=== PATIENT | female | born 1990 | race Two or more races ===

== ENCOUNTER 2024-08-09 09:32 | Emergency (ER) | payer MEDICAID, OTHER ==
[~2024-08-09] VITALS: Ht 160 cm; Wt 91.3 kg
--- NOTE | 2024-08-09 10:06 | ED.PDOC ---
Musculoskeletal HPI Comments 34-year-old female here with bilateral leg swelling. She states this has been in the last 2-3 weeks. Denies any chest pain shortness of breath. She states this has been ongoing for years. She states they have checked her heart and other organ systems but she is not exactly sure. Denies any recent cough cold runny nose. She was offered a water pill at some point but she did not know what for was for so she refused. Chief Complaint: Lower Extremity Time Seen by MD: 10:03 Reviewed Notes: Nurses Notes, Medications, Allergies Allergies: Coded Allergies: NO KNOWN ALLERGIES (Unverified , 08/09/24) Information Source: Patient Mode of Arrival: Ambulatory Location: Bilateral Extremity Location: Leg Timing: Weeks Prehospital treatment: None Severity: Moderate Able to Move Extremity: Yes Bear Weight: Fully Pain: Moderate Mechanism: Spontaneous Circumstances: Spontaneous Onset of Symptoms: Spontaneous Symptoms: Swelling, Pain DVT Risk Factors: NONE Last Tetanus: Unknown Associated signs and symptoms: Swelling Past Medical History PAST MEDICAL HISTORY: Denies Surgical History: Denies all surgeries PHOTOGRAPHY AND PRINTS CURATOR History: Denies all PHOTOGRAPHY AND PRINTS CURATOR Hx Family History Family History: Unknown Social History Smoker: Non-Smoker Alcohol: Denies ETOH Use Drugs: Denies Drug Use Lives In: Home Musculoskeletal: reports: others (BILATERAL LEG SWELLING) All Other Systems: Reviewed and Negative ( PER HPI) Physical Exam General Appearance: No Apparent Distress, Normal HEENT: Normal ENT Inspection, Pharynx Normal, TMs Normal Neck: Full Range of Motion, Non-Tender, Normal, Normal Inspection Respiratory: Chest Non-Tender, Lungs Clear, No Accessory Muscle Use, No Respiratory Distress, Normal Breath Sounds Cardiovascular: No Edema, No JVD, No Murmur, No Gallop, Normal Peripheral Pulses, Regular Rate/Rhythm Breast Exam: Deferred Gastrointestinal: No Organomegaly, Non Tender, No Pulsatile Mass, Normal Bowel Sounds, Soft Genitalia: Deferred Pelvic: Deferred Rectal: Deferred Extremities: Leg edema (3+ BILATERAL), No calf tenderness, Normal capillary refill, Normal inspection, Normal range of motion, Non-tender, Other (Bilateral leg edema right more than left. Plus two pitting edema to left lower extremity) Musculoskeletal : Apperance: Normal Neurologic: Alert, automatic log cut off sawyer II-XII nml as Tested, No Motor Deficits, Normal Affect, Normal Mood, No Sensory Deficits Cerebellar Function: Normal Reflexes: Normal Skin: Dry, Normal Color, Warm Lymphatic: No Adenopathy Was a procedure done? Was a procedure done?: No Differential Diagnosis EXT Differential Diagnosis: Cellulitis, CHF, Gout, Other (DVT) X-Ray, Labs, Meds, VS Vital Signs Date Time Temp Pulse Resp B/P (MAP) Pulse Ox O2 Delivery O2 Flow Rate FiO2 08/09/24 12:43 97.7 79 20 127/84 (98) 98 97.7 08/09/24 10:32 98.1 80 15 125/78 (94) 99 98.1 08/09/24 10:29 Room Air* 0 21 08/09/24 10:28 125/78 08/09/24 09:57 98.4 82 20 127/68 (87) 98 98.4 Lab Test 08/09/24 10:14 Range/Units White Blood Count 7.1 4.4-10.8 10^3/uL Red Blood Count 4.62 4.0-5.20 10^6/uL Hemoglobin 12.5 12.2-16.2 g/dL Hematocrit 36.2 36.0-46.0 % Mean Corpuscular Volume 78.2 L 80.0-100.0 fL Mean Corpuscular Hemoglobin 27.0 L 28.0-32.0 pg Mean Corpuscular Hemoglobin Concent 34.6 32.0-36.0 g/dL Red Cell Distribution Width 16.4 H 11.8-14.3 % Platelet Count 384 140-450 10^3/uL Mean Platelet Volume 8.5 6.9-10.8 fL Neutrophils (%) (Auto) 60.8 37.0-80.0 % Lymphocytes (%) (Auto) 24.9 10.0-50.0 % Monocytes (%) (Auto) 10.1 0.0-12.0 % Eosinophils (%) (Auto) 3.1 0.0-7.0 % Basophils (%) (Auto) 1.1 0.0-2.0 % Neutrophils # (Auto) 4.3 1.6-8.6 10 ^3/uL Lymphocytes # (Auto) 1.8 0.4-5.4 10 ^3/uL Monocytes # (Auto) 0.7 0-1.3 10 ^3/uL Eosinophils # (Auto) 0.2 0-0.8 10 ^3/uL Basophils # (Auto) 0.1 0-0.2 10 ^3/uL Nucleated Red Blood Cells 0.0 % Sodium Level 142 136-145 mmol/L Potassium Level 3.6 3.5-5.1 mmol/L Chloride Level 107 98-107 mmol/L Carbon Dioxide Level 29 20-31 mmol/L Anion Gap 6 5-15 Blood Urea Nitrogen 6 L 9-23 mg/dL Creatinine 0.62 0.550-1.02 mg/dL Glomerular Filtration Rate Calc 119 >90 mL/min BUN/Creatinine Ratio 9.7 L 10.0-20.0 Serum Glucose 100 74-106 mg/dL Calcium Level 9.8 8.7-10.4 mg/dL B-Type Natriuretic Peptide 14.14 0-100 pg/mL Current Medications Medications (Trade) Dose Ordered Sig/Jennifer Route Start Time Stop Time Status Last Admin Furosemide (Lasix Injection) 40 mg ONCE ONCE IV 08/09/24 10:15 08/09/24 10:16 DC 08/09/24 10:28 [place] [id number] Ph: [phone] DIAGNOSTIC IMAGING Diagnostic Imaging Report : [id number] Signed PATIENT: ALE CHUNG DACCT: [id number] UNIT: [id number] : 1990 LOC: ER ROOM / BED: / AGE / SEX: 34 / F ADM STATUS: REG ER SERVICE 1007 ORDERING PHYSICIAN: ABEL GRIJALVA MD PROCEDURE(s): BLDVT - BiLat Lower DVT REASON: ro dvt BL,SWELLING ORDER NUMBER(s): [id number], ACCESSION NUMBER(s): [id number] US BiLat Lower DVT HISTORY: ro dvt BL,SWELLING COMPARISON: None TECHNIQUE: Duplex doppler evaluation of the deep venous system of the lower extremity from the common femoral veins, superficial femoral vein, great saphenous vein, deep femoral vein, popliteal vein, and calf veins, including color doppler and spectral/pulsed waveform analysis, was performed. FINDINGS: Right: - Common femoral vein: Compressible - Deep femoral vein: Compressible - Femoral vein: Compressible - Popliteal vein: Compressible - Posterior tibial vein: Waveforms present - Other: Nothing Left: - Common femoral vein: Compressible - Deep femoral vein: Compressible - Femoral vein: Compressible - Popliteal vein: Compressible - Posterior tibial vein: Waveforms present - Other: Nothing IMPRESSION: No right or left lower extremity deep venous thrombosis. ATED BY: MCIHAEL MUSTAFA MD DICTATED DATE/TIME: 08/09/241204 SIGNED BY: MICHAEL MUSTAFA MD SIGNED DATE/TIME: 08/09/241204 CC: [place] [id number] Ph: [phone] DIAGNOSTIC IMAGING Diagnostic Imaging Report : [id number] Signed PATIENT: ALE CHUNG DDACCT: [id number] UNIT: [id number] : 1990 LOC: ER ROOM / BED: / AGE / SEX: 34 / F ADM STATUS: REG ER SERVICE 1016 ORDERING PHYSICIAN: ABEL GRIJALVA MD PROCEDURE(s): CXR2 - CHEST TWO VIEWS ROUTINE REASON: pna ORDER NUMBER(s): [id number], ACCESSION NUMBER(s): [id number] EXAM: XR Chest, 2 Views CLINICAL INDICATION: pna TECHNIQUE: Frontal and lateral views of the chest. COMPARISON: None FINDINGS: LUNGS AND PLEURAL SPACES: Unremarkable. No consolidation. No pneumothorax. HEART: Unremarkable. No cardiomegaly. MEDIASTINUM: Unremarkable. Normal mediastinal contour. BONES/JOINTS: Unremarkable. No acute fracture. OTHER FINDINGS: . IMPRESSION: No acute cardiopulmonary process. ATED BY: ALENA MERCER MD DICTATED DATE/TIME: 08/09/241054 SIGNED BY: ALENA EMRCER MD SIGNED DATE/TIME: 08/09/241054 CC: 34-year-old female presents here with bilateral leg swelling. Worse to the right. On my examination she has 3+ pitting edema worse in the right. Ultrasound has been done in bilateral lower extremities with no evidence of DVT. I have given her Lasix IV in the ER. She is not short of breath. Doubt PE. At this time I will be discharging her home with a Lasix 20 mg p.o. to in the next 3 days along with potassium 40 mEq for the next 3 days. Advised her she needs to follow up with the regular doctor for further care and evaluation. Her BNP today is within normal limits. Advised patient to use compression stockings at home. Also advised her to keep her legs elevated above her heart when she is resting or sleeping. Advised her to return back to the ER if symptoms worsen or persist. Patient agreeable. Time of 1ST Reevaluation: 10:33 Reevaluation 1ST: Unchanged Time of 2ND Reevaluation: 14:48 Reevaluation 2ND: Improved Patient Education/Counseling: Diagnosis, Treatment Family Education/Counseling: No Family Present Departure 1 Departure Time of Disposition: 13:01 Impression: Primary Impression: Localized swelling of both lower legs Disposition: 01 HOME / SELF CARE / HOMELESS Condition: Stable Additional Instructions: There was no evidence Of DVT today. He has been given Lasix 1 dose IV here. I will be prescribing Lasix IV at home along with potassium for the next 3 days. Additionally please wear compression stockings and keep the legs elevated above the heart when sitting or resting. Please follow up with the primary care physician in 2-3 days. Return to the ER if symptoms worsen or persist. [place] [address] Ph: [phone] DIAGNOSTIC IMAGING Diagnostic Imaging Report : [id number] Signed PATIENT: ALE CHUNG ACCT: [id number] UNIT: [id number] : 1990 LOC: ER ROOM / BED: / AGE / SEX: 34 / F ADM STATUS: REG ER SERVICE 1007 ORDERING PHYSICIAN: ABEL GRIJALVA MD PROCEDURE(s): BLDVT - BiLat Lower DVT REASON: ro dvt BL,SWELLING ORDER NUMBER(s): [id number], ACCESSION NUMBER(s): [id number] US BiLat Lower DVT HISTORY: ro dvt BL,SWELLING COMPARISON: None TECHNIQUE: Duplex doppler evaluation of the deep venous system of the lower extremity from the common femoral veins, superficial femoral vein, great saphenous vein, deep femoral vein, popliteal vein, and calf veins, including color doppler and spectral/pulsed waveform analysis, was performed. FINDINGS: Right: - Common femoral vein: Compressible - Deep femoral vein: Compressible - Femoral vein: Compressible - Popliteal vein: Compressible - Posterior tibial vein: Waveforms present - Other: Nothing Left: - Common femoral vein: Compressible - Deep femoral vein: Compressible - Femoral vein: Compressible - Popliteal vein: Compressible - Posterior tibial vein: Waveforms present - Other: Nothing IMPRESSION: No right or left lower extremity deep venous thrombosis. ATED BY: MICHAEL MUSTAFA MD DICTATED DATE/TIME: 08/09/241204 SIGNED BY: MICHAEL MUSTAFA MD SIGNED DATE/TIME: 08/09/241204 CC: [place] [id number] Ph: [phone] DIAGNOSTIC IMAGING Diagnostic Imaging Report : [id number] Signed PATIENT: ALE CHUNG DD ACCT: [id number] UNIT: [id number] : 1990 LOC: ER ROOM / BED: / AGE / SEX: 34 / F ADM STATUS: REG ER SERVICE 1016 ORDERING PHYSICIAN: ABEL GRIJALVA MD PROCEDURE(s): CXR2 - CHEST TWO VIEWS ROUTINE REASON: pna ORDER NUMBER(s): [id number], ACCESSION NUMBER(s): [id number] EXAM: XR Chest, 2 Views CLINICAL INDICATION: pna TECHNIQUE: Frontal and lateral views of the chest. COMPARISON: None FINDINGS: LUNGS AND PLEURAL SPACES: Unremarkable. No consolidation. No pneumothorax. HEART: Unremarkable. No cardiomegaly. MEDIASTINUM: Unremarkable. Normal mediastinal contour. BONES/JOINTS: Unremarkable. No acute fracture. OTHER FINDINGS: . IMPRESSION: No acute cardiopulmonary process. ATED BY: ALENA MERCER MD DICTATED DATE/TIME: 08/09/24 105 SIGNED BY: ALENA MERCER MD SIGNED DATE/TIME: 08/09/24 105 CC: e-Prescriptions Potassium Chloride (POTASSIUM CHLORIDE CR) 10 Meq Tb 2 TAB PO DAILY for 3 Days, #6 TAB 1 Refill Prov: ABEL GRIJALVA MD 08/09/24 Furosemide (Lasix) 20 Mg Tb 1 TAB PO DAILY, #3 TAB 5 Refills Prov: ABEL GRIJALVA MD 08/09/24 Discharged With: Self Critical Care Note Critical Care Time?: No Stability Stability form required: No Heart Score Heart Score: Heart Score Response (Comments) Value History N/A 0 EKG N/A 0 Age N/A 0 Risk Factors N/A 0 Troponin N/A 0 Total 0 I personally scribed for ABEL GRIJALVA MD ([email or web address]) on 08/09/24 at 10:06. Electronically submitted by Angela Yancey ([email or web address]). I personally scribed for ABEL GRIJALVA MD ([email or web address]) on 08/09/24 at 13:00. Electronically submitted by Angela Yancey ([email or web address]). I personally scribed for ABEL GRIJALVA MD ([email or web address]) on 08/09/24 at 13:01. Electronically submitted by Angela Yancey ([email or web address]). I personally scribed for ABEL GRIJALVA MD ([email or web address]) on 08/09/24 at 13:13. Electronically submitted by Angela Yancey ([email or web address]). ABEL GRIJALVA MD Aug 09, 2024 10:06
[2024-08-09] MEDS: FUROSEMIDE 40 MG/4 ML VIAL IV ONE (10:28)
[2024-08-09 10:35] LABS: Chloride 107 mmol/L (98-107); Potassium 3.6 mmol/L (3.5-5.1); Sodium 142 mmol/L (136-145)
[2024-08-09 10:36] LABS: Anion Gap 6 (5-15); Carbon Dioxide 29 mmol/L (20-31)
[2024-08-09 10:37] LABS: Calcium 9.8 mg/dL (8.7-10.4)
[2024-08-09 10:38] LABS: Basophils # (auto) 0.1 10 ^3/uL (0-0.2); Basophils % (auto) 1.1 % (0.0-2.0); Eosinophils # (auto) 0.2 10 ^3/uL (0-0.8); Eosinophils % (auto) 3.1 % (0.0-7.0); Hematocrit 36.2 % (36.0-46.0); Hemoglobin 12.5 g/dL (12.2-16.2); Lymphocytes # (auto) 1.8 10 ^3/uL (0.4-5.4); Lymphocytes % (auto) 24.9 % (10.0-50.0); Mean Corpuscular Hgb Conc. 34.6 g/dL (32.0-36.0); Mean Corpuscular Volume 78.2 fL (80.0-100.0); Monocytes # (auto) 0.7 10 ^3/uL (0-1.3); Monocytes % (auto) 10.1 % (0.0-12.0); Neutrophils # (auto) 4.3 10 ^3/uL (1.6-8.6); Neutrophils % (auto) 60.8 % (37.0-80.0); Platelet Count (auto) 384 10^3/uL (140-450); Red Blood Cells 4.62 10^6/uL (4.0-5.20); Red Cell Distribution Width 16.4 % (11.8-14.3); White Blood Cell 7.1 10^3/uL (4.4-10.8)
[2024-08-09 10:41] LABS: Glucose 100 mg/dL (74-106)
[2024-08-09 10:42] LABS: BUN/Creatinine Ratio 9.7 (10.0-20.0)
[2024-08-09 10:43] LABS: Blood Urea Nitrogen 6 mg/dL (9-23)
--- NOTE | 2024-08-09 10:57 | DVH ---
EXAM: XR Chest, 2 Views CLINICAL INDICATION: pna TECHNIQUE: Frontal and lateral views of the chest. COMPARISON: None FINDINGS: LUNGS AND PLEURAL SPACES: Unremarkable. No consolidation. No pneumothorax. HEART: Unremarkable. No cardiomegaly. MEDIASTINUM: Unremarkable. Normal mediastinal contour. BONES/JOINTS: Unremarkable. No acute fracture. OTHER FINDINGS: . IMPRESSION: No acute cardiopulmonary process.
--- NOTE | 2024-08-09 12:08 | DVH ---
US BiLat Lower DVT HISTORY: ro dvt BL,SWELLING COMPARISON: None TECHNIQUE: Duplex doppler evaluation of the deep venous system of the lower extremity from the common femoral veins, superficial femoral vein, great saphenous vein, deep femoral vein, popliteal vein, an d calf veins, including color doppler and spectral/pulsed waveform analysis, was performed. FINDINGS: Right: - Common femoral vein: Compressible - Deep femoral vein: Compressible - Femoral vein: Compressible - Popliteal vein: Compressible - Posterior tibial vein: Waveforms present - Other: Nothing Left: - Common femoral vein: Compressible - Deep femoral vein: Compressible - Femoral vein: Compressible - Popliteal vein: Compressible - Posterior tibial vein: Waveforms present - Other: Nothing IMPRESSION: No right or left lower extremity deep venous thrombosis.
[2024-08-09 12:43] VITALS: BP 127/84; PULSE 79; RESP 20; TEMP 97.7; O2SAT 98
[2024-08-09] MEDS ORDERED: FURO1TAB33 PO (15:02)
[2024-08-09] MEDS ORDERED: POTA-36 PO (15:02)
== END 2024-08-09 15:10 | disposition home or self-care (01) ==
LOC: ER 09:32
DX: M79.89 Other specified soft tissue disorders (principal); Z79.899 Other long term (current) drug therapy
CPT/HCPCS: 36415; 71046; 80048; 83880; 85025; 93970; 96374; 99285; J1938